=== PATIENT | female | born 1950 | race African-American/Black ===

== ENCOUNTER 2024-08-06 00:23 | Emergency (ER) | payer MEDICARE, OTHER ==
[~2024-08-06] VITALS: Ht 165.1 cm; Wt 63.5 kg
[2024-08-06 00:26] VITALS: TEMP 97.8; O2SAT 97
[2024-08-06 01:18] LABS: BASOPHILS % 0.5 % (0.0-2.0); EOSINOPHILS % 2.8 % (0.0-5.0); HEMATOCRIT. 33.9 % (36.0-48.0); HEMOGLOBIN. 10.8 g/dL (12.0-16.0); LYMPHOCYTES % 26.6 % (20.0-50.0); MEAN CORPUSCULAR HEMOGLOBIN 25.6 pg (28.0-32.0); MEAN CORPUSCULAR HGB CONC 31.9 g/dL (31.0-37.0); MEAN CORPUSCULAR VOLUME 80.5 fL (81.0-99.0); MEAN PLATELET VOLUME 8.2 fl (7.4-10.4); MONOCYTES % 10.2 % (2.0-8.0); NEUTROPHILS % 59.9 % (40.0-76.0); PLATELET 252 x1000/uL (130-400); RED BLOOD CELL COUNT 4.22 mill/uL (4.2-5.4); RED CELL DISTRIBUTION WIDTH 15.1 % (11.6-14.6); WHITE BLOOD COUNT 9.8 x1000/uL (4.5-11.0)
[2024-08-06 01:26] LABS: CHLORIDE 102 mEq/L (98-107); POTASSIUM 3.2 mEq/L (3.5-5.1); SODIUM 141 mEq/L (136-145)
[2024-08-06 01:27] LABS: CARBON DIOXIDE 30 mEq/L (21-32)
[2024-08-06 01:28] LABS: CALCIUM 9.5 mg/dL (8.7-10.4)
[2024-08-06 01:32] LABS: CREATININE 1.9 mg/dL (0.6-1.0)
[2024-08-06 01:33] LABS: GLUCOSE 135 mg/dL (70-105); UREA NITROGEN BLOOD 23 mg/dL (9-23)
[2024-08-06 01:36] LABS: ETHANOL BLOOD < 10 mg/dL (<10); TROPONIN I HIGH SENSITIVITY < 4 ng/L (3.0-34)
[2024-08-06] MEDS: POTASSIUM CHLORIDE 20MEQ/PACKET PO NR (03:07)
[2024-08-06 03:18] LABS: PARTIAL THROMBOPLASTIN TIME 22.9 sec (23.4-31.0)
[2024-08-06] MEDS ORDERED: POTA-204 MT (04:24)
[2024-08-06 04:30] VITALS: BP 107/60; PULSE 84; RESP 11; O2SAT 98
== END 2024-08-06 04:49 | disposition home or self-care (01) ==
LOC: ER 00:23
DX: R55 Syncope and collapse (principal); I95.9 Hypotension, unspecified; E87.6 Hypokalemia; E11.9 Type 2 diabetes mellitus without complications; J45.909 Unspecified asthma, uncomplicated; E78.5 Hyperlipidemia, unspecified
CPT/HCPCS: 36415; 71045; 80048; 80320; 83880; 84484; 85025; 93005; 99284; G0480